=== PATIENT | female | born 1965 | race Caucasian/White ===

== ENCOUNTER 2021-11-01 16:23 | Inpatient (IN) | payer BC, OTHER ==
[2021-11-01] MEDS ORDERED: Sodium Chloride 0.9% 10 ML Syringe FLUSH PRN (16:44)
[2021-11-01] MEDS ORDERED: Sodium Chloride 0.9% 2.5 ML Syringe FLUSH PRN (16:44)
[2021-11-01 17:36] LABS: CARBON DIOXIDE,CO2 32.1 mmol/L (21.0-32.0)
[2021-11-01] MEDS ORDERED: Iopamidol 755 MG/ML 500 ML Multipack Bottle IVPUSH STA (18:49)
[2021-11-01] MEDS ORDERED: Dexamethasone 4 MG/ML SDV IVPUSH ONE (20:14)
[2021-11-01] MEDS ORDERED: Nicotine 21 MG/24 Hr Patch TRDERM ONE (20:16)
[2021-11-01] MEDS ORDERED: Albuterol 8 GM Inhaler INH ONE (20:19)
[2021-11-02] MEDS ORDERED: Aspirin 325 MG Tab PO ONE (00:33)
[2021-11-02] MEDS ORDERED: Furosemide 40 MG/4 ML VIAL IVPUSH ONE (02:06)
[2021-11-02] MEDS ORDERED: Glucagon,Human Recombinant 1 MG Vial IM PRN (02:08)
[2021-11-02] MEDS ORDERED: 50% Dextrose in Water 50 ML Syringe IVPUSH PRN (02:08)
[2021-11-02] MEDS ORDERED: Enoxaparin 40 MG/0.4 ML Syringe SUBCUT SCH (02:15)
[2021-11-02 06:27] LABS: HEMOGLOBIN A1C 7.9 %
[2021-11-02 06:36] LABS: CARBON DIOXIDE,CO2 34.4 mmol/L (21.0-32.0); POTASSIUM,K 3.8 mmol/L (3.5-5.1)
[2021-11-02] MEDS: Insulin Aspart 100 Units/ML 3 ML Pen SUBCUT SCH ×3 (09:01→17:44)
[2021-11-02] MEDS: Metoprolol Succinate 25 MG Tab.ER PO SCH (09:02)
[2021-11-02] MEDS: Lisinopril/Hydrochlorothiazide 10-12.5 MG Tab PO SCH (09:02)
[2021-11-02] MEDS: Furosemide 40 MG/4 ML VIAL IVPUSH SCH ×2 (10:43→15:30)
[2021-11-02] MEDS: Acetaminophen 325 MG Tab PO PRN (13:36)
[2021-11-02] MEDS ORDERED: Sodium Chloride 0.9% 2.5 ML Syringe FLUSH PRN (14:22)
[2021-11-02] MEDS: Enoxaparin 40 MG/0.4 ML Syringe SUBCUT SCH (15:31)
[2021-11-02] MEDS ORDERED: traZODone 50 MG Tab PO PRN (23:20)
[2021-11-03] MEDS: Acetaminophen 325 MG Tab PO PRN (03:46)
[2021-11-03] MEDS: Enoxaparin 40 MG/0.4 ML Syringe SUBCUT SCH (03:47)
[2021-11-03] MEDS: Insulin Aspart 100 Units/ML 3 ML Pen SUBCUT SCH ×2 (07:07→12:45)
[2021-11-03 08:08] LABS: BLOOD UREA NITROGEN,BUN 27 mg/dL (7.0-18.0); CARBON DIOXIDE,CO2 37.2 mmol/L (21.0-32.0); CHLORIDE,CL 101 mmol/L (98-107); GLUCOSE RANDOM 146 mg/dL (74-106); POTASSIUM,K 3.5 mmol/L (3.5-5.1); SODIUM,NA 140 mmol/L (136-145)
[2021-11-03] MEDS: Metoprolol Succinate 25 MG Tab.ER PO SCH (08:50)
[2021-11-03] MEDS: Furosemide 40 MG/4 ML VIAL IVPUSH SCH ×2 (08:50→14:00)
[2021-11-03] MEDS: Lisinopril/Hydrochlorothiazide 10-12.5 MG Tab PO SCH (09:03)
[2021-11-03 11:59] VITALS: BP 114/65; PULSE 82
== END 2021-11-03 14:00 | disposition home or self-care (01) | DRG 291 ==
LOC: MW.ED 16:23 → MW.MS 21:24 → OBSVTOIN 11-02 10:27 → MW.MS 11-02 18:13
PROVIDERS: ADMIT Internal Medicine; ATTEND Internal Medicine
DX: I11.0 Hypertensive heart disease with heart failure (principal); J96.01 Acute respiratory failure with hypoxia; Z68.44 Body mass index [BMI] 60.0-69.9, adult; I50.9 Heart failure, unspecified; G47.30 Sleep apnea, unspecified; E66.01 Morbid (severe) obesity due to excess calories; M17.11 Unilateral primary osteoarthritis, right knee; E78.00 Pure hypercholesterolemia, unspecified; J45.909 Unspecified asthma, uncomplicated; E03.9 Hypothyroidism, unspecified; M19.90 Unspecified osteoarthritis, unspecified site; F41.9 Anxiety disorder, unspecified; F32.A Depression, unspecified; F17.210 Nicotine dependence, cigarettes, uncomplicated; H54.7 Unspecified visual loss; Z88.0 Allergy status to penicillin; Z88.2 Allergy status to sulfonamides; Z91.09 Other allergy status, other than to drugs and biological substances
CPT/HCPCS: 36415; 71045; 71045-26; 71275; 71275-26; 80048; 80053; 80061; 82947; 83036; 83605; 83880; 85025; 85027; 85379; 87804; 93005; 93306; 96374; 96375; 99285-25; A9270-GY; J1100; J1650; J1815-GY; J1940; Q9967; U0002

== ENCOUNTER 2024-04-19 00:52 | Emergency (ER) | payer BC, OTHER ==
[2024-04-19] MEDS: Sodium Chloride 0.9% 10 ML Syringe FLUSH PRN (01:48)
[2024-04-19] MEDS: Sodium Chloride 0.9% 2.5 ML Syringe FLUSH PRN (01:48)
[2024-04-19 01:49] LABS: BASE EXCESS VENOUS 1.3 (-2.0-3.0); BASOPHILS ABSOLUTE AUTO 0.03 K/uL (0.00-0.20); BASOPHILS PERCENT AUTO 0.3 % (0.0-1.0); EOSINOPHILS ABSOLUTE AUTO 0.34 K/uL (0.00-0.45); EOSINOPHILS PERCENT AUTO 2.9 % (0.0-6.0); HEMATOCRIT 54.6 % (37.0-47.0); HEMOGLOBIN 17.5 g/dL (12.0-16.0); IMMATURE GRAN ABSOLUTE AUTO 0.04 K/uL (0.00-0.05); IMMATURE GRAN PERCENT AUTO 0.3 % (0.0-0.4); LYMPHOCYTES ABSOLUTE AUTO 2.94 K/uL (1.00-4.80); LYMPHOCYTES PERCENT AUTO 25.2 % (24.0-44.0); MEAN CORPUSCULAR HEMOGLOBIN 26.8 pg (28.0-32.0); MEAN CORPUSCULAR HGB CONC 32.1 g/dL (32.0-36.0); MEAN CORPUSCULAR VOLUME 83.6 fL (83.0-99.0); MEAN PLATELET VOLUME 9.5 fL (9.4-12.3); MONOCYTES ABSOLUTE AUTO 0.86 K/uL (0.00-0.80); MONOCYTES PERCENT AUTO 7.4 % (0.0-8.0); NEUTROPHILS ABSOLUTE AUTO 7.45 K/uL (1.80-7.70); NEUTROPHILS PERCENT AUTO 63.9 % (41.0-71.0); PH,VENOUS 7.42 (7.31-7.41); PLATELET COUNT,PLT 312 K/uL (150-400); RED BLOOD CELL COUNT 6.53 M/uL (4.10-5.30); WHITE BLOOD CELL COUNT,WBC 11.66 K/uL (3.9-11.3)
[2024-04-19 02:07] LABS: INR 1.01 (0.86-1.11)
[2024-04-19 02:19] LABS: ALBUMIN 4.1 g/dL (3.4-5.0); BILIRUBIN TOTAL 0.4 mg/dL (0.2-1.0); CALCIUM 10.7 mg/dL (8.5-10.1); CARBON DIOXIDE,CO2 26.1 mmol/L (21.0-32.0); EST CRCL DRUG DOSING (CG) 61.86 mL/min; POTASSIUM,K 4.1 mmol/L (3.5-5.1); PROTEIN TOTAL,TP 8.3 g/dL (6.4-8.2)
[2024-04-19] MEDS: Iopamidol 755 MG/ML 500 ML Multipack Bottle IVPUSH STA (03:37)
[2024-04-19 04:09] VITALS: BP 116/68; PULSE 72
[2024-04-19] MEDS ORDERED: Sodium Chloride 0.9% 500 ML IV SCH (04:15)
== END 2024-04-19 04:32 | disposition left against medical advice (07) ==
LOC: MW.ED 00:52
DX: R00.2 Palpitations (principal); I10 Essential (primary) hypertension; E78.00 Pure hypercholesterolemia, unspecified; E11.9 Type 2 diabetes mellitus without complications; J45.909 Unspecified asthma, uncomplicated; Z79.899 Other long term (current) drug therapy; Z88.2 Allergy status to sulfonamides; Z91.048 Other nonmedicinal substance allergy status; Z88.0 Allergy status to penicillin
CPT/HCPCS: 36415; 71045; 71275; 80053; 82803; 83880; 84484; 85025; 85610; 93005; 99285; J3490; Q9967; 93010; 99284

== ENCOUNTER 2025-07-17 10:20 | Emergency (ER) | payer BC ==
[2025-07-17 10:51] LABS: BASOPHILS ABSOLUTE AUTO 0.02 K/uL (0.00-0.20); BASOPHILS PERCENT AUTO 0.2 % (0.0-1.0); EOSINOPHILS ABSOLUTE AUTO 0.05 K/uL (0.00-0.45); EOSINOPHILS PERCENT AUTO 0.4 % (0.0-6.0); IMMATURE GRAN ABSOLUTE AUTO 0.05 K/uL (0.00-0.05); IMMATURE GRAN PERCENT AUTO 0.4 % (0.0-0.4); LYMPHOCYTES ABSOLUTE AUTO 1.47 K/uL (1.00-4.80); LYMPHOCYTES PERCENT AUTO 11.8 % (24.0-44.0); MEAN PLATELET VOLUME 9.4 fL (9.4-12.3); MONOCYTES ABSOLUTE AUTO 0.37 K/uL (0.00-0.80); MONOCYTES PERCENT AUTO 3.0 % (0.0-8.0); NEUTROPHILS ABSOLUTE AUTO 10.45 K/uL (1.80-7.70); NEUTROPHILS PERCENT AUTO 84.2 % (41.0-71.0); NRBC ABSOLUTE 0.00 K/uL (0.00-0.02); NRBC PERCENT 0.0 /100WBC (0.0-0.2); PLATELET COUNT,PLT 227 K/uL (150-400); RED BLOOD CELL COUNT 5.30 M/uL (4.10-5.30); WHITE BLOOD CELL COUNT,WBC 12.41 K/uL (3.9-11.3)
[2025-07-17] MEDS: Ketorolac 60 MG/2 ML SDV IVPUSH ONE (10:52)
[2025-07-17 11:11] LABS: A/G RATIO 1.0 (0.9-1.6); ALANINE AMINOTRANSFERASE,ALT 25.0 IU/L (14-63); ASPARTATE AMNIOTRANSFERASE,AST 15.0 IU/L (15-37); BILIRUBIN TOTAL 0.4 mg/dL (0.2-1.0); BLOOD UREA NITROGEN,BUN 28.0 mg/dL (7.0-18.0); CARBON DIOXIDE,CO2 22.9 mmol/L (21.0-32.0); CHLORIDE,CL 103.0 mmol/L (98-107); CREATININE 0.8 mg/dL (0.6-1.0); EST CRCL DRUG DOSING (CG) 76.38 mL/min; GLUCOSE RANDOM 233.0 mg/dL (74-106); POTASSIUM,K 4.1 mmol/L (3.5-5.1); PROTEIN TOTAL,TP 7.7 g/dL (6.4-8.2); SODIUM,NA 138.0 mmol/L (136-145)
[2025-07-17 11:23] LABS: ESTIMATED GFR 85.0 mL/min (>60)
[2025-07-17] MEDS: Iopamidol 755 MG/ML 500 ML Multipack Bottle IVPUSH STA (11:48)
[2025-07-17 13:15] LABS: APPEARANCE,URINE SLT CLOUDY; GLUCOSE,URINE 250 mg/dL (NEGATIVE); OCCULT BLOOD,URINE LARGE (NEGATIVE)
[2025-07-17 13:28] LABS: EPITHELIAL CELLS,URINE FEW (NONE-FEW)
[2025-07-17 18:09] VITALS: BP 169/78; PULSE 75
== END 2025-07-17 15:04 | disposition home or self-care (01) ==
LOC: MW.ED 10:20
DX: N20.1 Calculus of ureter (principal); K57.30 Diverticulosis of large intestine without perforation or abscess without bleeding; K76.0 Fatty (change of) liver, not elsewhere classified; K43.9 Ventral hernia without obstruction or gangrene; E27.9 Disorder of adrenal gland, unspecified; I10 Essential (primary) hypertension; E78.00 Pure hypercholesterolemia, unspecified; E11.9 Type 2 diabetes mellitus without complications; Z75.3 Unavailability and inaccessibility of health-care facilities; Z88.0 Allergy status to penicillin; Z91.048 Other nonmedicinal substance allergy status; Z88.2 Allergy status to sulfonamides; Z79.899 Other long term (current) drug therapy; Z79.84 Long term (current) use of oral hypoglycemic drugs
CPT/HCPCS: 36415; 74177; 80053; 81001; 82365; 83690; 83735; 85025; 87086; 96361; 96374; 96375; 96376; 99285; A9270; J1885; J7030; Q9967; 99284; J1171